=== PATIENT | female | born 1985 | race Caucasian/White ===

== ENCOUNTER 2018-03-27 11:45 | Observation (INO) ==
[2018-03-27 13:33] LABS: Baso % (Auto) 0.2 % (0.0-2.0); Eos # (Auto) 0.2 th/mm3 (0.0-0.4); Eos % (Auto) 1.6 % (0.0-4.0); Hematocrit 33.4 % (35.0-46.0); Hemoglobin 11.4 gm/dL (11.6-15.3); Lymph # (Auto) 1.8 th/mm3 (1.0-4.8); Mean Corpuscular HGB Conc 34.2 % (32.0-36.0); Mean Corpuscular Hemoglobin 29.5 pg (27.0-34.0); Mean Corpuscular Volume 86.3 fL (80.0-100.0); Mean Platelet Volume 7.6 fL (7.0-11.0); Mono # (Auto) 1.1 th/mm3 (0.0-0.9); Mono % (Auto) 7.2 % (0.0-8.0); Neut # (Auto) 12.8 th/mm3 (1.8-7.7); Platelet Count 298 th/mm3 (150-450); Red Blood Count 3.87 mil/mm3 (4.00-5.30); Red Cell Distribution Width 13.3 % (11.6-17.2); White Blood Count 15.9 th/mm3 (4.0-11.0)
[2018-03-27] MEDS ORDERED: Mag Sulf/Water 4 gm/100 ml 100 ML IV.SIG ONE (13:35)
[2018-03-27] MEDS ORDERED: Docusate Sodium 100 MG Capsule PO PRN (13:49)
[2018-03-27] MEDS ORDERED: ceFAZolin Inj 2,000 MG in Sodium Chlor 0.9% Inj 100 ML IV.SIG ONE (14:00)
[2018-03-27] MEDS ORDERED: Betamethasone Sod Phos/Acetate Inj 30 MG/5 ML Vial IM ONE (14:00)
--- NOTE | 2018-03-27 14:33 | P.HPOB ---
History of Present Illness Service: Antepartum Primary Care Physician: Wanda Jewell MD Chief Complaint: Twin IUP at 23 & 6/7 weeks EGA with cervical thinning and funneling History of Present Illness: 33 yo mwf with LMP 10/11/17 and EDC 07/18 19 by dates and 07/22/18 by 8 week sono seen by me today for reassurance. She was seen last week by my partner and routine anatomy sono showed di/di twins with cervical length of 1.08. She was placed on bedrest. She returns today to learn more. She also notes vaginal tightening and unsure what this means. Cervix was 1 cm in length, very soft and closed but exam caused bleeding. Speculum exam then showed significant grape like tissue at os. Hopefully this is exuberent endocervical glands and not placenta. Sono showed anterior and posterior placenta with nothing near the lower uterine segment at the os. Bleeding quickly stopped. Fundal height is 30. Ultrasound suggests both fetus are in the 50's percentile and over a pound each ( 1 pound 4 and 1 pound 5 ounces) Twin A is breech. Unable to do amnisure at this time with the prior check. She had GBS in her urine and had been on augmentin earlier in the . She gets frequent UTI's and has microscopic hematuria history She is above her ideal body weight and has gains 11 pounds so far. Weeks Gestation:: 24 Para: 0 : 1 Review of Systems All other systems reviewed negative except as stated in HPI PMFSH - History History Provided By: Patient - Medical / Surgical Hx Neg / Unobtainable Surgical History: No Previous Surgery - Tobacco History Second Hand Smoke Exposure: No Tobacco Use In Past 30 Days: No Smoking Status: Never smoker - Travel History Recent Travel in the [place] Within the Last 8 Weeks: No Recent Travel Out of the Country Within the Last 8 Weeks: No Medications and Allergies Active Medications: Active Medications Betamethasone Acet/Betameth SodPhos (Celestone Soluspan Inj) 12 mg IM ONCE ONE Stop: 03/28/18 14:01 Calcium Gluconate (Calcium Gluconate Inj) 1 gm IV.PUSH ONCE PRN PRN Reason: Magnesium toxicity Docusate Sodium (Colace) 100 mg PO BID PRN PRN Reason: CONSTIPATION Cefazolin Sodium 2,000 mg/ (Sodium Chloride) 120 mls @ 200 mls/hr IV.SIG NOW ONE Stop: 03/27/18 14:35 Cefazolin Sodium 1,000 mg/ (Sodium Chloride) 100 mls @ 200 mls/hr IV.SIG Q6H [facility] Lactated Ringer's (Lr 1000 Ml Inj) 1,000 mls @ 75 mls/hr IV.SIG .[id number] [facility] Magnesium Sulfate (Magnesium Sulfate/Water 40 Gm/1000 Ml Premix) 40 gm in 1, 000 mls @ 25 mls/hr IV.CONT Q24H [facility] Vit/Calcium/Iron/Folic Ac (Stuartnatal Plus 3) 1 tab PO DAILY [facility] Zolpidem Tartrate (Ambien) 5 mg PO HS PRN PRN Reason: INSOMNIA Allergies Allergy/AdvReac Type Severity Reaction Status Date / Time No Known Allergies Allergy Verified 03/10/18 20:18 Home Medications Medication Instructions Recorded Confirmed Type Zyrtec 1 tab PO PRN 03/27/18 03/27/18 History Exam Vital signs: Vital Signs 03/27/18 13:24 Pulse Rate 90 Blood Pressure 121/65 Intake & Output 03/26/18 03/27/18 03/27/18 18:59 06:59 18:59 Weight 110.223 kg Other: Weight On Admission 110.223 kg - Constitutional no acute distress - Routine HEENT Exam Head: Present: normocephalic Eye: Present: EOMI, PERRL ENT: Present: mucous membranes moist - Routine Respiratory Exam Present: CTA bilaterally - Routine Cardiovascular Exam Present: RRR - Routine Abdominal Exam Present: soft, normoactive bowel sounds Results - Labs CBC & Chem 7: 03/27/18 12:59 Labs: Laboratory Results - last 24 hr 03/27/18 12:59 WBC 15.9 H RBC 3.87 L Hgb 11.4 L Hct 33.4 L MCV 86.3 MCH 29.5 MCHC 34.2 RDW 13.3 Plt Count 298 MPV 7.6 Neut % (Auto) 80.0 H Lymph % (Auto) 11.0 Major % (Auto) 7.2 Eos % (Auto) 1.6 Baso % (Auto) 0.2 Neut # (Auto) 12.8 H Lymph # (Auto) 1.8 Major # (Auto) 1.1 H Eos # (Auto) 0.2 Baso # (Auto) 0.0 WBC Differential . Differential Comment Auto diff final Caprini VTE Risk Assessment Caprini VTE Risk Assessment: No/Low Risk (score <= 1) Caprini Risk Assessment Model: Point Value = 1 Point Value = 2 Point Value = 3 Point Value = 5 Age 41-60 Minor surgery BMI > 25 kg/m2 Swollen legs Varicose veins or History of unexplained or recurrent spontaneous Oral contraceptives or hormone replacement Sepsis (< 1 month) Serious lung disease, including pneumonia (< 1 month) Abnormal pulmonary function Acute myocardial infarction Congestive heart failure (< 1 month) History of inflammatory bowel disease Medical patient at bed rest Age 61-74 Arthroscopic surgery Major open surgery (> 45 min) Laparoscopic surgery (> 45 min) Malignancy Confined to bed (> 72 hours) Immobilizing plaster cast Central venous access Age >= 75 History of VTE Family history of VTE Factor V Leiden Prothrombin [id number] Lupus anticoagulant Anticardiolipin antibodies Elevated serum homocysteine Heparin-induced thrombocytopenia Other congenital or acquired thrombophilia Stroke (< 1 month) Elective arthroplasty Hip, pelvis, or leg fracture Acute spinal cord injury (< 1 month) Prophylaxis Regimen: Total Risk Factor Score Risk Level Prophylaxis Regimen 0-1 Low Early ambulation 2 Moderate Order ONE of the following: *Sequential Compression Device (SCD) *Heparin 5000 units SQ BID 3-4 Higher Order ONE of the following medications: *Heparin 5000 units SQ TID *Enoxaparin/Lovenox 40 mg SQ daily (WT < 150 kg, CrCl > 30 mL/min) *Enoxaparin/Lovenox 30 mg SQ daily (WT < 150 kg, CrCl > 10-29 mL/min) *Enoxaparin/Lovenox 30 mg SQ BID (WT < 150 kg, CrCl > 30 mL/min) AND/OR *Sequential Compression Device (SCD) 5 or more Highest Order ONE of the following medications: *Heparin 5000 units SQ TID (Preferred with Epidurals) *Enoxaparin/Lovenox 40 mg SQ daily (WT < 150 kg, CrCl > 30 mL/min) *Enoxaparin/Lovenox 30 mg SQ daily (WT < 150 kg, CrCl > 10-29 mL/min) *Enoxaparin/Lovenox 30 mg SQ BID (WT < 150 kg, CrCl > 30 mL/min) AND *Sequential Compression Device (SCD) Assessment and Plan - Diagnosis (1) Twin Code(s): O30.009 - Twin , unspecified number of placenta and unspecified number of amniotic sacs, unspecified trimester Status: Acute (2) 24 weeks gestation of Code(s): Z3A.24 - 24 weeks gestation of Status: Acute (3) Cervix abnormality Code(s): N88.9 - Noninflammatory disorder of cervix uteri, unspecified Status : Acute (4) Group B streptococcal bacteriuria Code(s): R82.71 - Bacteriuria Status: Acute - Plan Admit and administer betamethasone 12-24 hours Magnesium for neuro protection anticipating early delivery Ancef for GBS and possible recurrance or inadequate treatment of bacturia Rule out labor See perinatology in the am. Possible transfer to tertiary care center with level IV nursery. (1) Twin Qualifiers: Multiple gestation type: dichorionic and diamniotic Trimester: third trimester Qualified Code(s): O30.043 - Twin , dichorionic/diamniotic, third trimester
[2018-03-27] MEDS: Mag Sulf/Water 40 gm/1000 ml 40 GM/1,000 ML BAG IV.CONT SCH (14:38)
[2018-03-27 14:51] LABS: Amphetamine Screen,Urine Neg (Neg); Barbiturate Screen,Urine Neg (Neg); Cannabinoid Screen,Urine Neg (Neg); Cocaine Screen,Urine Neg (Neg)
[2018-03-27 14:55] LABS: Bacteria,Urine Rare /hpf; Bilirubin,Urine Negative (Negative); Clarity,Urine Hazy (Clear); Color,Urine Yellow (Yellw/Straw); Glucose,Urine (UA) Negative (Negative); Leukocyte Esterase,Urine Negative (Negative); Mucus,Urine Few /lpf (Occasional); Nitrite,Urine Negative (Negative); Specific Gravity,Urine 1.005 (1.002-1.035); Squamous Epithelial Cell,Urine <1 /hpf (0-5)
[2018-03-27 15:09] LABS: Opiate Screen,Urine Neg (Neg)
[2018-03-27] MEDS ORDERED: Zolpidem Tartrate 5 MG Tablet PO PRN (21:00)
--- NOTE | 2018-03-28 08:37 | P.OBANTE ---
Subjective Interval History: Quiet night with occasional tightening (no more than one per hour) good movement no further bleeding or discharge WBC 15 -- had 2 gm ancef x 1 Objective Vital Signs and I&O: Vital Signs 03/27/18 13:24 03/27/18 13:30 03/27/18 14:43 Temperature 98.2 F Pulse Rate 90 95 H 86 Respiratory Rate 18 Blood Pressure 121/65 107/65 111/60 03/27/18 16:01 03/27/18 16:31 03/27/18 19:01 Temperature Pulse Rate 97 H 96 H 99 H Respiratory Rate 18 Blood Pressure 118/59 L 131/68 109/56 L 03/27/18 19:15 03/27/18 20:01 03/27/18 22:01 Temperature 98.2 F Pulse Rate 102 H 98 H Respiratory Rate 18 Blood Pressure 100/47 L 131/62 03/28/18 00:01 Temperature Pulse Rate 92 H Respiratory Rate Blood Pressure 133/61 Intake & Output 03/27/18 03/28/18 03/28/18 18:59 06:59 18:59 Intake Total 1100 / 1100 Balance 1100 / 1100 Weight 110.223 kg Intake: IV 1100 / 1100 LR 1000 mL Inj 1,000 ML @ 75 1000 / 1000 mls/hr IV.SIG .[id number] [facility] Rx#: [id number] Ancef Inj 1,000 MG In NS Inj 100 / 100 100 ML @ 200 mls/hr IV.SIG Q6H [facility] Rx#:[id number] Other: Weight On Admission 110.223 kg Lab and Micro Results: Laboratory Results - last 24 hr 03/27/18 03/27/18 03/27/18 12:51 12:51 12:59 WBC 15.9 H RBC 3.87 L Hgb 11.4 L Hct 33.4 L MCV 86.3 MCH 29.5 MCHC 34.2 RDW 13.3 Plt Count 298 MPV 7.6 Neut % (Auto) 80.0 H Lymph % (Auto) 11.0 Rice % (Auto) 7.2 Eos % (Auto) 1.6 Baso % (Auto) 0.2 Neut # (Auto) 12.8 H Lymph # (Auto) 1.8 [place] # (Auto) 1.1 H Eos # (Auto) 0.2 Baso # (Auto) 0.0 WBC Differential . Differential Comment Auto diff final Urine Color Yellow Urine Clarity Hazy H Urine pH 6.0 Ur Specific [place] 1.005 Urine Protein 30 H Urine Glucose (UA) Negative Urine Ketones Negative Urine Occult Blood Large H Urine Nitrate Negative Urine Bilirubin Negative Urine Urobilinogen Less than 2 Ur Leukocyte Esterase Negative Urine RBC 4 H Urine WBC 1 Ur Squamous Epith Cells <1 Urine Bacteria Rare H Urine Mucus Few H Micro UA Comment Culture not ind Ur Microscopic Review Not Reportable Urine Culture Comments Culture not ind Urine Opiates Screen Neg Ur Barbiturates Screen Neg Ur Amphetamines Screen Neg U Benzodiazepines Scrn Neg Urine Cocaine Screen Neg U Cannabinoids Screen Neg Physical Exam: GENERAL: Well-nourished, well-developed patient. CARDIOVASCULAR: Regular rate and rhythm without murmurs, gallops, or rubs. RESPIRATORY: Breath sounds equal bilaterally. No accessory muscle use. ABDOMEN/GI: Abdomen soft, non-tender. Fundus: [-] GENITOURINARY: External Genitalia: intact and normal in appearance cervix not checked perineum dry no odor EXTREMITIES: No cyanosis or edema, non-tender, without signs of DVT. Assessment and Plan - Diagnosis (1) Twin Code(s): O30.009 - Twin , unspecified number of placenta and unspecified number of amniotic sacs, unspecified trimester Status: Acute (2) 24 weeks gestation of Code(s): Z3A.24 - 24 weeks gestation of Status: Acute (3) Cervix abnormality Code(s): N88.9 - Noninflammatory disorder of cervix uteri, unspecified Status : Acute (4) Group B streptococcal bacteriuria Code(s): R82.71 - Bacteriuria Status: Acute - Plan Admit and administer betamethasone 12-24 hours Magnesium for neuro protection anticipating early delivery Ancef for GBS and possible recurrance or inadequate treatment of bacturia Rule out labor See perinatology in the am. Possible transfer to tertiary care center with level IV nursery. 03/28/18 8:30 await perinatology advice (1) Twin Qualifiers: Multiple gestation type: dichorionic and diamniotic Trimester: third trimester Qualified Code(s): O30.043 - Twin , dichorionic/diamniotic, third trimester
[2018-03-28] MEDS: Prenatal Vit/Ca/Iron/Folic Acid Tablet PO SCH ×2 (09:48→09:58)
[2018-03-28] MEDS: Mag Sulf/Water 40 gm/1000 ml 40 GM/1,000 ML BAG IV.CONT SCH (10:29)
[2018-03-28] MEDS ORDERED: Mag Sulf/Water 40 gm/1000 ml 40 GM/1,000 ML BAG IV.CONT SCH (12:00)
[2018-03-28] MEDS ORDERED: Betamethasone Sod Phos/Acetate Inj 30 MG/5 ML Vial IM ONE (14:00)
--- NOTE | 2018-03-28 18:30 | P.OBANTE ---
Subjective Interval History: The perinatology evaluation by Dr. Wolf revealed a cervix of normal length: > 4 cm with a large nabothian cyst mimicking amniotic fluid in the internal os and resembling funneling. Placentas not near the os. Babies both well. Objective Vital Signs and I&O: Vital Signs 03/27/18 19:01 03/27/18 19:15 03/27/18 20:01 Temperature 98.2 F Pulse Rate 99 H 102 H Respiratory Rate 18 Blood Pressure 109/56 L 100/47 L 03/27/18 22:01 03/28/18 00:01 03/28/18 08:15 Temperature Pulse Rate 98 H 92 H 86 Respiratory Rate Blood Pressure 131/62 133/61 114/62 03/28/18 08:30 03/28/18 10:01 03/28/18 10:15 Temperature 97.6 F Pulse Rate 93 H Respiratory Rate 17 16 Blood Pressure 104/54 L 03/28/18 12:53 03/28/18 14:13 03/28/18 14:15 Temperature 98.0 F Pulse Rate 87 83 85 Respiratory Rate 17 Blood Pressure 87/45 L 82/35 L 125/74 03/28/18 16:00 Temperature Pulse Rate 92 H Respiratory Rate Blood Pressure 133/65 Intake & Output 03/27/18 03/28/18 03/28/18 18:59 06:59 18:59 Intake Total 1200 / 1200 1999 / 1999 Balance 1200 / 1200 1999 / 1999 Weight 110.223 kg Intake: IV 1200 / 1200 1999 Magnesium Sulfate/Water 40 gm/ 1000 / 1000 1000 ml Premix 40 gm In 1,000 ml @ 1 GM/HR 25 mls/hr IV.CONT Q24H [facility] Rx#:[id number] LR 1000 mL Inj 1,000 ML @ 75 1000 / 1000 1000 / 1000 mls/hr IV.SIG .[id number] [facility] Rx#: [id number] Ancef Inj 1,000 MG In NS Inj 200 / 200 100 ML @ 200 mls/hr IV.SIG Q6H [facility] Rx#:[id number] Other: Weight On Admission 110.223 kg Physical Exam: GENERAL: Well-nourished, well-developed patient. CARDIOVASCULAR: Regular rate and rhythm without murmurs, gallops, or rubs. RESPIRATORY: Breath sounds equal bilaterally. No accessory muscle use. ABDOMEN/GI: Abdomen soft, non-tender. FH 30 cervix not reexamined today EXTREMITIES: No cyanosis or edema, non-tender, without signs of DVT. Assessment and Plan - Diagnosis (1) Twin Code(s): O30.009 - Twin , unspecified number of placenta and unspecified number of amniotic sacs, unspecified trimester Status: Acute (2) 24 weeks gestation of Code(s): Z3A.24 - 24 weeks gestation of Status: Acute (3) Cervix abnormality Code(s): N88.9 - Noninflammatory disorder of cervix uteri, unspecified Status : Acute (4) Group B streptococcal bacteriuria Code(s): R82.71 - Bacteriuria Status: Acute - Plan Admit and administer betamethasone 12-24 hours Magnesium for neuro protection anticipating early delivery Ancef for GBS and possible recurrance or inadequate treatment of bacturia Rule out labor See perinatology in the am. Possible transfer to tertiary care center with level IV nursery. 03/28/18 8:30 await perinatology advice 03/28/18 18:30 plan is to keep until tomorrow and then do fibronectin if normal can go home to perform normal activity if in one week cervix stable, discuss returning to work. Family and patient aware and much relieved. (1) Twin Qualifiers: Multiple gestation type: dichorionic and diamniotic Trimester: third trimester Qualified Code(s): O30.043 - Twin , dichorionic/diamniotic, third trimester
[2018-03-29 07:54] VITALS: RESP 16; TEMP 98.6
[2018-03-29 08:18] VITALS: BP 131/58; PULSE 82
--- NOTE | 2018-03-29 08:33 | P.OBANTE ---
Subjective Interval History: +FM, cervical length 4cm on US yesterday, FFN at noon today and if negative will d/c home on bedrest Objective Vital Signs and I&O: Vital Signs 03/28/18 08:30 03/28/18 10:01 03/28/18 10:15 Temperature 97.6 F Pulse Rate 93 H Respiratory Rate 17 16 Blood Pressure 104/54 L 03/28/18 12:53 03/28/18 14:13 03/28/18 14:15 Temperature 98.0 F Pulse Rate 87 83 85 Respiratory Rate 17 Blood Pressure 87/45 L 82/35 L 125/74 03/28/18 16:00 03/28/18 20:08 03/28/18 20:10 Temperature 98.9 F Pulse Rate 92 H 83 Respiratory Rate 20 Blood Pressure 133/65 148/59 H 03/28/18 23:59 03/29/18 05:55 03/29/18 07:53 Temperature 97.9 F 98.0 F 98.6 F Pulse Rate 86 84 Respiratory Rate 20 18 16 Blood Pressure 129/39 L 122/64 03/29/18 07:54 Temperature Pulse Rate 82 Respiratory Rate Blood Pressure 131/58 L Intake & Output 03/28/18 03/29/18 03/29/18 18:59 06:59 18:59 Intake Total 1999 Balance 1999 Intake: IV 1999 Magnesium Sulfate/Water 40 gm/ 1000 / 1000 1000 ml Premix 40 gm In 1,000 ml @ 1 GM/HR 25 mls/hr IV.CONT Q24H [facility] Rx#:[id number] LR 1000 mL Inj 1,000 ML @ 75 1000 / 1000 mls/hr IV.SIG .[id number] [facility] Rx#: [id number] Physical Exam: GENERAL: Well-nourished, well-developed patient. CARDIOVASCULAR: Regular rate and rhythm without murmurs, gallops, or rubs. RESPIRATORY: Breath sounds equal bilaterally. No accessory muscle use. ABDOMEN/GI: Abdomen soft, non-tender. Fundus: [-] GENITOURINARY: External Genitalia: intact and normal in appearance Cervix: [-] deferred Dilatation: [-] Effacement: [-] Station: [-] Presentation: [-] Membranes: [-] Uterine Contractions: [-] FHT's: Category: [-] Baseline: [-] Reactive: [-] Variability: [-] Decels: [-] EXTREMITIES: No cyanosis or edema, non-tender, without signs of DVT. Assessment and Plan - Diagnosis (1) Twin Code(s): O30.009 - Twin , unspecified number of placenta and unspecified number of amniotic sacs, unspecified trimester Status: Acute (2) 24 weeks gestation of Code(s): Z3A.24 - 24 weeks gestation of Status: Acute (3) Cervix abnormality Code(s): N88.9 - Noninflammatory disorder of cervix uteri, unspecified Status : Acute (4) Group B streptococcal bacteriuria Code(s): R82.71 - Bacteriuria Status: Acute - Plan Admit and administer betamethasone 12-24 hours Magnesium for neuro protection anticipating early delivery Ancef for GBS and possible recurrance or inadequate treatment of bacturia Rule out labor See perinatology in the am. Possible transfer to tertiary care center with level IV nursery. 03/28/18 8:30 await perinatology advice 03/28/18 18:30 plan is to keep until tomorrow and then do fibronectin if normal can go home to perform normal activity if in one week cervix stable, discuss returning to work. Family and patient aware and much relieved. 03/29/18 FFN today, if neg d/c home repeat CL in one week s/p mg sulfate, celestone, antibiotics here - Attending Attestation pt seen by me (1) Twin Qualifiers: Multiple gestation type: dichorionic and diamniotic Trimester: third trimester Qualified Code(s): O30.043 - Twin , dichorionic/diamniotic, third trimester
[2018-03-29] MEDS: Prenatal Vit/Ca/Iron/Folic Acid Tablet PO SCH (09:11)
== END 2018-03-29 15:00 | disposition home or self-care (01) ==
LOC: H2E
PROVIDERS: ADMIT Obstetrics & Gynecology; ATTEND Obstetrics & Gynecology

== ENCOUNTER 2018-06-18 10:13 | Inpatient (IN) ==
--- NOTE | 2018-06-18 11:13 | ED ---
History of Present Illness Primary Care Physician: No Primary Care Physician Chief Complaint: hypertension History of Present Illness: 33 yr old at 35/5 wga with twin gestation presenting from Dr. Stoddard's office for blood pressure control and US to estimate weight and possible delivery. is complicated by gestational diabetes (diet controlled), Rh (-) s/p Rhogam, GBS +, and short cervix. According to pt, she has received magnesium and corticosteroids twice in the past. She states she was checked this morning and was 4 cm dilated, 90% effaced, -3. She is feeling regular FM, no VB, no gush of fluid, no contractions. Pt has a history of Polycystic Kidney Disease and has had proteinuria in the past. During today's visit she had +4 protein in her urine. Weeks Gestation:: 35 Para: 0 : 1 Review of Systems Constitutional: Denies fever(s), Denies headache(s) Eyes: Denies blurry vision Cardiovascular: Denies chest pain, Denies leg swelling Respiratory: Denies chest congestion, Denies cough, Denies shortness of breath Gastrointestinal: Denies abdominal pain PMFSH - History History Provided By: Patient - Medical History Medical History: Medical History (Last Updated 06/18/18 @ 13:45 by Carine Hare MD, R1) Polycystic kidney disease - Family History Family History: Family History (Last Updated 06/18/18 @ 13:45 by Carine Hare MD, R1) Father PKD (polycystic kidney disease) - Social History I have reviewed the patient's Social History: Yes - Tobacco History Second Hand Smoke Exposure: No Smoking Status: Never smoker - Alcohol History How Often Do You Have a Drink Containing Alcohol: Never - Substance Use History Substance History: No History of Abuse Medications and Allergies Allergies Allergy/AdvReac Type Severity Reaction Status Date / Time No Known Allergies Allergy Verified 03/10/18 20:18 Home Medications Medication Instructions Recorded Confirmed Type PNV #[id number] 1 tab PO DAILY 03/27/18 06/18/18 History Zyrtec 1 tab PO PRN 03/27/18 06/18/18 History aspirin 1 tab PO DAILY 06/18/18 06/18/18 History Exam Vital signs: Vital Signs 06/18/18 10:45 Temperature 98.7 F Pulse Rate 94 H Respiratory Rate 17 Blood Pressure 124/79 Narrative: GENERAL: Well-nourished, well-developed patient. SKIN: Warm and dry. CARDIOVASCULAR: Regular rate and rhythm without murmurs, gallops, or rubs. RESPIRATORY: Breath sounds equal bilaterally. No accessory muscle use. ABDOMEN/GI: . Abdomen soft, non-tender, bowel sounds present, no rebound , no guarding GENITOURINARY: Membranes: intact Uterine Contractions: absent FHT's: Category: 1 Baseline: Twin A 130 bpm Twin B 140 bpm Reactive: Yes Variability: moderate Decels: no EXTREMITIES: No cyanosis or edema. NEUROLOGICAL: Awake and alert. Normal speech. Results - Labs CBC & Chem 7: 06/18/18 10:56 06/18/18 10:56 Group B Strep: Positive Assessment and Plan - Diagnosis (1) Polycystic kidney disease Code(s): Q61.3 - Polycystic kidney, unspecified Status: Acute (2) Twin Code(s): O30.009 - Twin , unspecified number of placenta and unspecified number of amniotic sacs, unspecified trimester Status: Acute Qualifiers: Multiple gestation type: dichorionic and diamniotic Trimester: third trimester Qualified Code(s): O30.043 - Twin , dichorionic/diamniotic , third trimester (3) Cervix abnormality Code(s): N88.9 - Noninflammatory disorder of cervix uteri, unspecified Status : Acute (4) Group B streptococcal bacteriuria Code(s): R82.71 - Bacteriuria Status: Acute - Plan Cerix at 8pm was 4cm/100/0 with BBOW. strips category 1 x2 BPs high normal labs all normal sonogram today shows IUGR in twin A 5 pounds with twin B 5 pounds 12 ounces. GBS has received two doses. NICU asked for rescue dose of betamethasone Decision made to hold on AROM until 12 hours after steroid dose. She can have dinner tonight and sleeping pill. Extended monitoring today reassuring. Will AROM at 6 and augment as needed. Epidural prn. Discharge Plan - Physicians Team Primary Care Provider: Primary Care Eric,Roseline Attending Provider: rBee Linares
[2018-06-18 11:18] LABS: Baso % (Auto) 0.3 % (0.0-2.0); Eos # (Auto) 0.2 th/mm3 (0.0-0.4); Eos % (Auto) 1.4 % (0.0-4.0); Hematocrit 35.9 % (35.0-46.0); Hemoglobin 12.3 gm/dL (11.6-15.3); Lymph # (Auto) 1.7 th/mm3 (1.0-4.8); Lymph % (Auto) 15.7 % (9.0-44.0); Mean Corpuscular HGB Conc 34.3 % (32.0-36.0); Mean Corpuscular Hemoglobin 30.4 pg (27.0-34.0); Mean Corpuscular Volume 88.8 fL (80.0-100.0); Mono # (Auto) 0.9 th/mm3 (0.0-0.9); Mono % (Auto) 8.1 % (0.0-8.0); Neut # (Auto) 8.2 th/mm3 (1.8-7.7); Neut % (Auto) 74.5 % (16.0-70.0); Platelet Count 232 th/mm3 (150-450); Red Blood Count 4.05 mil/mm3 (4.00-5.30); Red Cell Distribution Width 14.5 % (11.6-17.2)
[2018-06-18 11:37] LABS: Alanine Aminotransferase 26 U/L (10-53); Albumin 2.3 g/dL (3.4-5.0); Anion Gap 9 meq/L (5-15); Aspartate Aminotransferase 14 U/L (15-37); Blood Urea Nitrogen 12 mg/dL (7-18); Calcium 8.3 mg/dL (8.5-10.1); Carbon Dioxide 19.9 meq/L (21.0-32.0); Chloride 110 meq/L (98-107); Glomerular Filtration Rate Greater Than 89 mL/min (>89); Glucose,Random 74 mg/dL (74-106); Sodium 139 meq/L (136-145)
[2018-06-18 11:40] LABS: Alkaline Phosphatase 199 U/L (45-117); Total Protein 6.5 g/dL (6.4-8.2)
[2018-06-18 11:56] LABS: Bacteria,Urine Moderate /hpf; Bilirubin,Urine Negative (Negative); Clarity,Urine Cloudy (Clear); Color,Urine Yellow (Yellw/Straw); Glucose,Urine (UA) Negative (Negative); Leukocyte Esterase,Urine Moderate (Negative); Mucus,Urine Few /lpf (Occasional); Nitrite,Urine Negative (Negative); Specific Gravity,Urine 1.011 (1.002-1.035); Squamous Epithelial Cell,Urine 19 /hpf (0-5)
[2018-06-18 12:26] LABS: Total Protein,Urine Random 129.1 mg/dL (0-11.8)
[2018-06-18 12:30] LABS: Protein/Creatinine Ratio,Urine 1.42 (0.00-0.14)
[2018-06-18] MEDS ORDERED: Penicillin G Potassium Inj 5,000,000 UNIT in Sodium Chloride 0.9% Inj 100 ML IV.SIG ONE (13:41)
[2018-06-18] MEDS ORDERED: Oxytocin 30 Units/500ml Premix 30 UNITS/500 ML BAG IV.SIG ONE (13:41)
[2018-06-18] MEDS ORDERED: Sodium Chlor 0.9% Inj 500 ML IV.SIG PRN (13:41)
[2018-06-18] MEDS ORDERED: Sod Chloride 0.9% Inj 1,000 ML IV.CONT PRN (13:41)
[2018-06-18] MEDS ORDERED: Naloxone Inj 0.4 MG/ML Vial IV.PUSH PRN (13:41)
[2018-06-18] MEDS ORDERED: fentaNYL Citrate Inj 100 MCG/2 ML Ampul IV.PUSH PRN ×2 (13:41)
[2018-06-18] MEDS ORDERED: Citric Acid/Sodium Citrate Liq 30 ML UDC PO SCH (13:45)
[2018-06-18] MEDS ORDERED: Betamethasone Sod Phos/Acetate Inj 30 MG/5 ML Vial IM ONE (17:00)
[2018-06-18] MEDS: Penicillin G Potassium Inj 2,500,000 UNIT in Sodium Chlor 0.9% Inj 100 ML IV.SIG SCH (18:36)
[2018-06-18 22:53] LABS: Amphetamine Urine With Conf Neg (Neg); Benzodiazepine Urine With Conf Neg (Neg); Cocaine Urine With Conf Neg (Neg); Opiates Urine With Conf Neg (Neg)
[2018-06-18 22:59] LABS: Cannabinoid Urine With Conf Neg (Neg)
[2018-06-19] MEDS ORDERED: Oxytocin 30 Units/500ml Premix 30 UNITS/500 ML BAG IV.SIG PRN (08:02)
--- NOTE | 2018-06-19 08:09 | P.OBLABOR ---
Subjective Interval history: had quiet night gardenia mildly in good spiritis Objective Vital Signs: Vital Signs - 8 hr 06/19/18 03:34 06/19/18 03:35 06/19/18 07:18 Temperature 98.8 F 98.1 F Pulse Rate 111 H Respiratory Rate 18 Blood Pressure 134/72 06/19/18 07:25 Temperature Pulse Rate 101 H Respiratory Rate 16 Blood Pressure 106/81 Objective: Pelvic Exam: / arom clear category 1 x 2 Patient Started Active Labor: No Medical Induction of Labor: Yes Artificial Rupture of Membrane: Yes Artificial ROM Date: 06/19/18 Artificial ROM Time: 08:07 Assessment and Plan - Diagnosis (1) Polycystic kidney disease Code(s): Q61.3 - Polycystic kidney, unspecified Status: Acute (2) Twin Code(s): O30.009 - Twin , unspecified number of placenta and unspecified number of amniotic sacs, unspecified trimester Status: Acute (3) Cervix abnormality Code(s): N88.9 - Noninflammatory disorder of cervix uteri, unspecified Status : Acute (4) Group B streptococcal bacteriuria Code(s): R82.71 - Bacteriuria Status: Acute - Plan Cerix at 8pm was 4cm/100/0 with BBOW. strips category 1 x2 BPs high normal labs all normal sonogram today shows IUGR in twin A 5 pounds with twin B 5 pounds 12 ounces. GBS has received two doses. NICU asked for rescue dose of betamethasone Decision made to hold on AROM until 12 hours after steroid dose. She can have dinner tonight and sleeping pill. Extended monitoring today reassuring. Will AROM at 6 and augment as needed. Epidural prn. 06/19/18 0800 pitocin if needed pcn resumed anticipate (2) Twin Qualifiers: Multiple gestation type: dichorionic and diamniotic Trimester: third trimester Qualified Code(s): O30.043 - Twin , dichorionic/diamniotic, third trimester
[2018-06-19] MEDS: Penicillin G Potassium Inj 2,500,000 UNIT in Sodium Chlor 0.9% Inj 100 ML IV.SIG SCH ×3 (08:50→17:21)
[2018-06-19] MEDS ORDERED: fentaNYL 2MCG-Bupiv 0.125% Epi 150 ML EPIDURAL ONE (11:17)
[2018-06-19] MEDS ORDERED: Lidocaine PF 1% Inj 5 ML Vial ONE (12:29)
[2018-06-19] MEDS ORDERED: Lidocaaine 1.5%/Epinephrine 1:200,000 PF Inj 5 ML Amp ONE (12:29)
[2018-06-19] MEDS ORDERED: fentaNYL Citrate Inj 100 MCG/2 ML Ampul EPIDURAL ONE (13:27)
[2018-06-19] MEDS ORDERED: fentaNYL 2MCG-Bupiv 0.125% Epi 150 ML EPIDURAL PRN (13:27)
[2018-06-19] MEDS ORDERED: Methylergonovine Inj 0.2 MG/ML Ampul ONE (15:35)
[2018-06-19] MEDS ORDERED: Varicella Vaccine Live 1350 UNITS/0.5 ML Vial SQ ONE (16:00)
[2018-06-19] MEDS ORDERED: Diphtheria/Tetanus/Pertussis Vaccine Inj 0.5 ML Syringe IM ONE (16:00)
[2018-06-19] MEDS ORDERED: Measles/Mumps/Rubella Vaccine Inj 0.5 ML Vial SQ ONE (16:00)
[2018-06-19] MEDS ORDERED: Bisacodyl 10 MG Supp RECTAL PRN (16:15)
[2018-06-19] MEDS ORDERED: Zolpidem Tartrate 5 MG Tablet PO PRN (16:15)
[2018-06-19] MEDS ORDERED: Naloxone Inj 0.4 MG/ML Vial IV.PUSH PRN (16:15)
[2018-06-19] MEDS ORDERED: Oxytocin 30 Units/500ml Premix 30 UNITS/500 ML BAG IV.CONT PRN (16:15)
--- NOTE | 2018-06-19 16:15 | P.OBDELI ---
Weeks Gestation: 35 Anesthesia: Epidural Episiotomy: midline Presentation: Occiput posterior, Breech Nuchal Cord: Other Delayed Cord Clamping (45 sec): Yes Placenta: Spontaneous delivery, Intact, 3 vessel cord Laceration: 2 deg Repair: Chromic running Estimated blood loss (mL): 200 : Multiple Infant Female A Delivery Date: 06/19/18 Infant Delivery Time: 16:08 score (1 min): 8 score (5 min): 9 Male B Delivery Date: 06/19/18 Infant Delivery Time: 16:08 score (1 min): 9 score (5 min): 9 (Baby A)
[2018-06-19] MEDS ORDERED: Methylergonovine Inj 0.2 MG/ML Ampul IM ONE (17:00)
[2018-06-19] MEDS: Witch Hazel 50%/Glyderin 12.5% 40 Pad Jar RECTAL PRN (23:01)
[2018-06-19] MEDS: Benzocaine 20% Top Spray 60 ML Can TOPICAL PRN (23:02)
[2018-06-19] MEDS: Senna/Docusate Sodium 8.6/50 MG Tablet PO SCH (23:02)
[2018-06-19] MEDS: Acetaminophen 325 MG Tablet PO PRN (23:02)
[2018-06-20] MEDS: Senna/Docusate Sodium 8.6/50 MG Tablet PO SCH ×2 (08:26→21:22)
[2018-06-20] MEDS: Acetaminophen 325 MG Tablet PO PRN (08:26)
--- NOTE | 2018-06-20 11:33 | P.PNOB ---
Subjective Post day: 1 Interval history: doing well no pain did have some low pressures and some post bleeding. appropriate now planning to nurse babies both in room Objective Vital Signs/I&O: Vital Signs 06/19/18 12:31 06/19/18 12:36 06/19/18 13:01 Temperature Pulse Rate 88 108 H 111 H Respiratory Rate Blood Pressure 127/74 111/40 L 114/59 L 06/19/18 13:05 06/19/18 13:16 06/19/18 13:31 Temperature 98.5 F Pulse Rate 98 H 125 H Respiratory Rate Blood Pressure 116/70 116/70 06/19/18 13:46 06/19/18 14:01 06/19/18 14:16 Temperature Pulse Rate 96 H 98 H 88 Respiratory Rate Blood Pressure 113/69 111/67 112/66 06/19/18 14:46 06/19/18 15:05 06/19/18 15:20 Temperature Pulse Rate 94 H 99 H 98 H Respiratory Rate 18 18 Blood Pressure 116/73 133/56 L 123/55 L 06/19/18 15:35 06/19/18 15:50 06/19/18 16:10 Temperature Pulse Rate 105 H 102 H 131 H Respiratory Rate 18 18 Blood Pressure 94/51 L 99/65 L 141/47 H 06/19/18 16:13 06/19/18 16:31 06/19/18 16:46 Temperature 98.8 F Pulse Rate 111 H 103 H Respiratory Rate 18 Blood Pressure 115/45 L 106/67 06/19/18 17:00 06/19/18 17:01 06/19/18 17:16 Temperature Pulse Rate 94 H 92 H Respiratory Rate 18 Blood Pressure 120/67 100/55 L 06/19/18 17:31 06/19/18 17:46 06/19/18 20:00 Temperature 98.6 F Pulse Rate 92 H 93 H 84 Respiratory Rate 20 Blood Pressure 123/54 L 111/85 109/71 06/20/18 08:00 Temperature 98.0 F Pulse Rate 73 Respiratory Rate 20 Blood Pressure 104/62 Intake & Output 06/19/18 06/20/18 06/20/18 18:59 06:59 18:59 Intake Total 200 / 200 Balance 200 / 200 Intake: IV 200 / 200 Pfizerpen-G Inj 2,500,000 UNIT 200 / 200 In NS Inj 100 ML @ 200 mls/hr IV.SIG Q4H [facility] Rx#:[id number] Result Diagrams: 06/18/18 10:56 06/18/18 10:56 Objective Remarks: GENERAL: Well-nourished, well-developed patient. CARDIOVASCULAR: Regular rate and rhythm without murmurs, gallops, or rubs. RESPIRATORY: Breath sounds equal bilaterally. No accessory muscle use. ABDOMEN/GI: Abdomen soft, non-tender. Fundus: Firm, non-tender at umbilicus. GENITOURINARY: Light to moderate bleeding. EXTREMITIES: No cyanosis or edema, non-tender, without signs of DVT. Medications and IVs: Active Medications Acetaminophen (Tylenol) 650 mg PO Q4H PRN PRN Reason: PAIN SCALE 1 TO 2 Last Admin: 06/20/18 08:26 Dose: 650 mg Al Hydroxide/Mg Hydroxide (Milk Of Magnesia Liq) 30 ml PO Q12H PRN PRN Reason: Mild Constipation Benzocaine (Americaine 20% Top [place]) 1 spray TOPICAL Q4H PRN PRN Reason: For Perineum Discomfort Last Admin: 06/19/18 23:02 Dose: 1 spray Bisacodyl (Dulcolax Supp) 10 mg RECTAL DAILY PRN PRN Reason: SEVERE CONSITIPATION Oxytocin (Pitocin 30 Units/Ns 500 Ml Premix) 30 units in 500 mls @ 100 mls/hr IV.CONT UNSCH PRN PRN Reason: Heavy bleeding Ibuprofen (Motrin) 800 mg PO Q8H PRN PRN Reason: For Cramping Last Admin: 06/20/18 04:45 Dose: 800 mg Lactulose (Lactulose Liq) 30 ml PO DAILY PRN PRN Reason: SEVERE CONSITIPATION Miscellaneous Information (Misc Information) 1 each OTHER UNSCH PRN PRN Reason: SEE LABEL COMMENTS Stop: 06/20/18 13:27 Naloxone HCl (Narcan Inj) 0.1 mg IV.PUSH Q2M PRN PRN Reason: for opiate reversal Ondansetron HCl (Zofran Odt) 4 mg PO Q6H PRN PRN Reason: NAUSEA OR VOMITING Senna/Docusate Sodium (Amalia-Colace) 1 tab PO BID [facility] Last Admin: 06/20/18 08:26 Dose: 1 tab Sennosides (Senokot) 17.2 mg PO Q12H PRN PRN Reason: Moderate Constipation Sodium Chloride (Ns Flush) 2 ml IV.FLUSH PRN PRN PRN Reason: FLUSH AFTER USING IV ACCESS Sodium Chloride (Ns Flush) 2 ml IV.FLUSH BID [facility] Last Admin: 06/20/18 08:21 Dose: Not Given Sodium Chloride (Ns Flush) 2 ml IV.FLUSH PRN PRN PRN Reason: FLUSH AFTER USING IV ACCESS Witch Chitra/Glycerin (Tucks Pads) 1 applicatio RECTAL QID PRN PRN Reason: HEMORRHOIDS Last Admin: 06/19/18 23:01 Dose: 1 applicatio Zolpidem Tartrate (Ambien) 5 mg PO HS PRN PRN Reason: SLEEP Assessment and Plan - Diagnosis (1) Polycystic kidney disease Code(s): Q61.3 - Polycystic kidney, unspecified Status: Acute (2) Twin Code(s): O30.009 - Twin , unspecified number of placenta and unspecified number of amniotic sacs, unspecified trimester Status: Acute (3) Cervix abnormality Code(s): N88.9 - Noninflammatory disorder of cervix uteri, unspecified Status : Acute (4) Group B streptococcal bacteriuria Code(s): R82.71 - Bacteriuria Status: Acute - Plan Cerix at 8pm was 4cm/100/0 with BBOW. strips category 1 x2 BPs high normal labs all normal sonogram today shows IUGR in twin A 5 pounds with twin B 5 pounds 12 ounces. GBS has received two doses. NICU asked for rescue dose of betamethasone Decision made to hold on AROM until 12 hours after steroid dose. She can have dinner tonight and sleeping pill. Extended monitoring today reassuring. Will AROM at 6 and augment as needed. Epidural prn. 06/19/18 0800 pitocin if needed pcn resumed anticipate 06/20/18 doing well after delivery will order CBC IV is out (2) Twin Qualifiers: Multiple gestation type: dichorionic and diamniotic Trimester: third trimester Qualified Code(s): O30.043 - Twin , dichorionic/diamniotic, third trimester
[2018-06-20 12:18] LABS: Baso % (Auto) 0.3 % (0.0-2.0); Eos # (Auto) 0.1 th/mm3 (0.0-0.4); Eos % (Auto) 0.8 % (0.0-4.0); Hematocrit 31.1 % (35.0-46.0); Hemoglobin 10.5 gm/dL (11.6-15.3); Lymph # (Auto) 2.3 th/mm3 (1.0-4.8); Lymph % (Auto) 19.5 % (9.0-44.0); Mean Corpuscular HGB Conc 33.7 % (32.0-36.0); Mean Corpuscular Hemoglobin 30.2 pg (27.0-34.0); Mean Corpuscular Volume 89.8 fL (80.0-100.0); Mean Platelet Volume 7.7 fL (7.0-11.0); Mono # (Auto) 0.8 th/mm3 (0.0-0.9); Mono % (Auto) 7.2 % (0.0-8.0); Neut # (Auto) 8.5 th/mm3 (1.8-7.7); Neut % (Auto) 72.2 % (16.0-70.0); Platelet Count 205 th/mm3 (150-450); Red Blood Count 3.46 mil/mm3 (4.00-5.30); Red Cell Distribution Width 14.6 % (11.6-17.2); White Blood Count 11.8 th/mm3 (4.0-11.0)
[2018-06-21] MEDS: Acetaminophen 325 MG Tablet PO PRN ×2 (02:44→12:42)
--- NOTE | 2018-06-21 08:09 | P.PNOB ---
Subjective Post day: 2 Interval history: Pt doing well, min bleeding Objective Vital Signs/I&O: Vital Signs 06/20/18 20:00 Temperature 98.3 F Pulse Rate 77 Respiratory Rate 18 Blood Pressure 119/71 Result Diagrams: 06/20/18 11:53 06/18/18 10:56 Objective Remarks: GENERAL: Well-nourished, well-developed patient. CARDIOVASCULAR: Regular rate and rhythm without murmurs, gallops, or rubs. RESPIRATORY: Breath sounds equal bilaterally. No accessory muscle use. ABDOMEN/GI: Abdomen soft, non-tender. Fundus: Firm, non-tender at umbilicus. GENITOURINARY: Light to moderate bleeding. EXTREMITIES: No cyanosis or edema, non-tender, without signs of DVT. Medications and IVs: Active Medications Acetaminophen (Tylenol) 650 mg PO Q4H PRN PRN Reason: PAIN SCALE 1 TO 2 Last Admin: 06/21/18 02:44 Dose: 650 mg Al Hydroxide/Mg Hydroxide (Milk Of Magnesia Liq) 30 ml PO Q12H PRN PRN Reason: Mild Constipation Benzocaine (Americaine 20% Top [place]) 1 spray TOPICAL Q4H PRN PRN Reason: For Perineum Discomfort Last Admin: 06/19/18 23:02 Dose: 1 spray Bisacodyl (Dulcolax Supp) 10 mg RECTAL DAILY PRN PRN Reason: SEVERE CONSITIPATION Oxytocin (Pitocin 30 Units/Ns 500 Ml Premix) 30 units in 500 mls @ 100 mls/hr IV.CONT UNSCH PRN PRN Reason: Heavy bleeding Ibuprofen (Motrin) 800 mg PO Q8H PRN PRN Reason: For Cramping Last Admin: 06/21/18 07:18 Dose: 800 mg Lactulose (Lactulose Liq) 30 ml PO DAILY PRN PRN Reason: SEVERE CONSITIPATION Naloxone HCl (Narcan Inj) 0.1 mg IV.PUSH Q2M PRN PRN Reason: for opiate reversal Ondansetron HCl (Zofran Odt) 4 mg PO Q6H PRN PRN Reason: NAUSEA OR VOMITING Senna/Docusate Sodium (Amalia-Colace) 1 tab PO BID [facility] Last Admin: 06/20/18 21:22 Dose: 1 tab Sennosides (Senokot) 17.2 mg PO Q12H PRN PRN Reason: Moderate Constipation Sodium Chloride (Ns Flush) 2 ml IV.FLUSH PRN PRN PRN Reason: FLUSH AFTER USING IV ACCESS Sodium Chloride (Ns Flush) 2 ml IV.FLUSH BID [facility] Last Admin: 06/20/18 22:55 Dose: Not Given Sodium Chloride (Ns Flush) 2 ml IV.FLUSH PRN PRN PRN Reason: FLUSH AFTER USING IV ACCESS Witch Chitra/Glycerin (Tucks Pads) 1 applicatio RECTAL QID PRN PRN Reason: HEMORRHOIDS Last Admin: 06/19/18 23:01 Dose: 1 applicatio Zolpidem Tartrate (Ambien) 5 mg PO HS PRN PRN Reason: SLEEP Assessment and Plan - Diagnosis (1) Polycystic kidney disease Code(s): Q61.3 - Polycystic kidney, unspecified Status: Acute (2) Twin Code(s): O30.009 - Twin , unspecified number of placenta and unspecified number of amniotic sacs, unspecified trimester Status: Acute (3) Cervix abnormality Code(s): N88.9 - Noninflammatory disorder of cervix uteri, unspecified Status : Acute (4) Group B streptococcal bacteriuria Code(s): R82.71 - Bacteriuria Status: Acute - Plan 33 yo G1 s/p ptd of twins at 35w5d - doing well PIH - bp normal now, f/u in 1wk bp check (2) Twin Qualifiers: Multiple gestation type: dichorionic and diamniotic Trimester: third trimester Qualified Code(s): O30.043 - Twin , dichorionic/diamniotic, third trimester
[2018-06-21 08:22] VITALS: BP 101/62; PULSE 65; RESP 20
[2018-06-21 08:23] VITALS: TEMP 98.5
[2018-06-21] MEDS: Senna/Docusate Sodium 8.6/50 MG Tablet PO SCH (08:31)
[2018-06-21] MEDS: Benzocaine 20% Top Spray 60 ML Can TOPICAL PRN (08:51)
[2018-06-21] MEDS: Witch Hazel 50%/Glyderin 12.5% 40 Pad Jar RECTAL PRN (08:51)
--- NOTE | 2018-06-21 11:08 | P.PNOB ---
Subjective Post day: 2 Interval history: Anne was examined at bedside with FOB and twin infants present in the room. She complains of abdominal tenderness that has been in the suprapubic region that now radiates outward and encompasses much of her lower abdomen. She has had no increase in vaginal bloody discharge and has not exceeded the use of more than one pad per hour for bleeding. She is otherwise doing well, no complaints of headache, dizziness, blurry vision, calf pain, SOB, chest pain, or mood disturbances. Objective Vital Signs/I&O: Vital Signs 06/20/18 20:00 06/21/18 08:00 Temperature 98.3 F 98.5 F Pulse Rate 77 65 Respiratory Rate 18 20 Blood Pressure 119/71 101/62 Result Diagrams: 06/20/18 11:53 06/18/18 10:56 Objective Remarks: GENERAL: Well-nourished, well-developed patient. CARDIOVASCULAR: Regular rate and rhythm without murmurs, gallops, or rubs. RESPIRATORY: Breath sounds equal bilaterally. No accessory muscle use. ABDOMEN/GI: Abdomen soft, non-tender. Fundus: Firm, non-tender at the level of the umbilicus, no enlargement or bogginess. GENITOURINARY: Light to moderate bleeding. EXTREMITIES: No cyanosis or edema, non-tender, without signs of DVT. Medications and IVs: Active Medications Acetaminophen (Tylenol) 650 mg PO Q4H PRN PRN Reason: PAIN SCALE 1 TO 2 Last Admin: 06/21/18 02:44 Dose: 650 mg Al Hydroxide/Mg Hydroxide (Milk Of Magnesia Liq) 30 ml PO Q12H PRN PRN Reason: Mild Constipation Benzocaine (Americaine 20% Top [place]) 1 spray TOPICAL Q4H PRN PRN Reason: For Perineum Discomfort Last Admin: 06/21/18 08:51 Dose: 1 spray Bisacodyl (Dulcolax Supp) 10 mg RECTAL DAILY PRN PRN Reason: SEVERE CONSITIPATION Oxytocin (Pitocin 30 Units/Ns 500 Ml Premix) 30 units in 500 mls @ 100 mls/hr IV.CONT UNSCH PRN PRN Reason: Heavy bleeding Ibuprofen (Motrin) 800 mg PO Q8H PRN PRN Reason: For Cramping Last Admin: 06/21/18 07:18 Dose: 800 mg Lactulose (Lactulose Liq) 30 ml PO DAILY PRN PRN Reason: SEVERE CONSITIPATION Naloxone HCl (Narcan Inj) 0.1 mg IV.PUSH Q2M PRN PRN Reason: for opiate reversal Ondansetron HCl (Zofran Odt) 4 mg PO Q6H PRN PRN Reason: NAUSEA OR VOMITING Senna/Docusate Sodium (Amalia-Colace) 1 tab PO BID [facility] Last Admin: 06/21/18 08:31 Dose: 1 tab Sennosides (Senokot) 17.2 mg PO Q12H PRN PRN Reason: Moderate Constipation Sodium Chloride (Ns Flush) 2 ml IV.FLUSH PRN PRN PRN Reason: FLUSH AFTER USING IV ACCESS Sodium Chloride (Ns Flush) 2 ml IV.FLUSH BID [facility] Last Admin: 06/20/18 22:55 Dose: Not Given Sodium Chloride (Ns Flush) 2 ml IV.FLUSH PRN PRN PRN Reason: FLUSH AFTER USING IV ACCESS Witch Chitra/Glycerin (Tucks Pads) 1 applicatio RECTAL QID PRN PRN Reason: HEMORRHOIDS Last Admin: 06/21/18 08:51 Dose: 1 applicatio Zolpidem Tartrate (Ambien) 5 mg PO HS PRN PRN Reason: SLEEP Assessment and Plan - Plan 33 yo , PPD #2, delivery of twins at 35w5d, complaint of mild suprapubic tenderness, otherwise doing well. 1. Suprapubic tenderness, likely due to expected course of post- delivery. - Counseled on the expected course of post symptoms and vaginal bleeding - Encouraged to contact Dr. Linares if experiencing any symptoms of headaches , dizziness, blurry vision, calf pain, chest pain, SOB, blues or depression. 2. - doing well. - Counseled on . - Encouraged to follow-up post with Dr. Linares in 2 weeks. 3. PIH - bp normal now, f/u in 1wk bp check. Discharge Planning: Ready for discharge today
== END 2018-06-21 13:10 | disposition home or self-care (01) ==
LOC: H2E 10:13 → HOBED 10:13 → OBSVTOIN 11:57 → H2E 12:36 → H1EA 06-19 19:46
PROVIDERS: ADMIT Obstetrics & Gynecology; ATTEND Obstetrics & Gynecology